=== PATIENT | male | born 1980 | race Caucasian/White ===

== ENCOUNTER 2022-06-01 14:04 | Outpatient (CLI) | payer BC, SELFPAY ==
[2022-06-01 14:55] LABS: Albumin* 4.4 g/dL (3.3-5.0); Chloride* 104 mmol/L (96-114)
[2022-06-01 14:56] LABS: Potassium* 5.2 mmol/L (3.6-5.1); Sodium* 140 mmol/L (135-149)
[2022-06-01 14:58] LABS: Alkaline Phosphatase* 67 U/L (40-150); Aspartate Amino Transferase* 34 U/L (12-35); Bilirubin Total* 0.8 mg/dL (0.1-1.5); Blood Urea Nitrogen* 18 mg/dL (5-24); Carbon Dioxide* 31 mmol/L (20-32); Creatinine* 0.9 mg/dL (0.5-1.5); Estimated Glomerular Filt Rate 111 ml/min; Total Protein* 7.1 g/dL (6.0-8.3)
[2022-06-01 14:59] LABS: Alanine Aminotransferase* 43 U/L (4-50); Calcium* 9.2 mg/dL (8.4-10.6); Glucose* 102 mg/dL (60-115)
== END 2022-06-01 14:05 | disposition home or self-care (01) ==
PROVIDERS: PCP Family Medicine; Visit Provider Family Medicine
DX: Z00.00 Encounter for general adult medical examination without abnormal findings (principal); E78.5 Hyperlipidemia, unspecified; R63.5 Abnormal weight gain; R53.83 Other fatigue; E87.5 Hyperkalemia
CPT/HCPCS: 80053

== ENCOUNTER 2022-06-12 10:12 | Outpatient (CLI) | payer BC, SELFPAY ==
[2022-06-12 14:46] LABS: Chloride* 104 mmol/L (96-114); Potassium* 4.9 mmol/L (3.6-5.1); Sodium* 140 mmol/L (135-149)
[2022-06-12 14:48] LABS: Cholesterol* 174 mg/dL (90-199)
[2022-06-12 14:49] LABS: Blood Urea Nitrogen* 21 mg/dL (5-24); Carbon Dioxide* 31 mmol/L (20-32); Creatinine* 0.8 mg/dL (0.5-1.5); Estimated Glomerular Filt Rate 115 ml/min; Glucose* 93 mg/dL (60-115)
[2022-06-12 14:50] LABS: Calcium* 9.3 mg/dL (8.4-10.6); HDL Cholesterol* 49 mg/dL (>=40); LDL Cholesterol Calculated 103 mg/dL (<100); Triglycerides* 108 mg/dL (40-149)
== END 2022-06-12 10:13 | disposition home or self-care (01) ==
PROVIDERS: Visit Provider Family Medicine
DX: E87.5 Hyperkalemia (principal); R63.5 Abnormal weight gain; R53.83 Other fatigue; Z13.6 Encounter for screening for cardiovascular disorders
CPT/HCPCS: 80048; 80061; 84443

== ENCOUNTER 2023-06-04 07:36 | Outpatient (CLI) | payer OTHER, SELFPAY | END 2023-06-04 07:37 | disposition home or self-care (01) | LOC: NFLDREF 06-06 06:53 | PROVIDERS: PCP Family Medicine; Referring Provider Family Medicine; Visit Provider Family Medicine | DX: Z13.220 Encounter for screening for lipoid disorders (principal); Z13.228 Encounter for screening for other metabolic disorders | CPT/HCPCS: 80053; 80061 ==

== ENCOUNTER 2024-06-02 07:30 | Outpatient (CLI) | payer OTHER, SELFPAY | END 2024-06-02 07:31 | disposition home or self-care (01) | LOC: NFLDREF 06-03 02:55 | PROVIDERS: PCP Physician Assistant Medical; Referring Provider Physician Assistant Medical; Visit Provider Physician Assistant Medical | DX: E78.5 Hyperlipidemia, unspecified (principal); K21.00 Gastro-esophageal reflux disease with esophagitis, without bleeding | CPT/HCPCS: 80053; 80061; 84443 ==